=== PATIENT | male | born 1965 | race Caucasian/White ===

== ENCOUNTER 2019-08-09 20:18 | Observation (INO) | payer OTHER ==
--- NOTE | 2019-08-09 20:30 | ER Document Report ---
ED Medical Screen (RME) - General Stated Complaint: SIGNS OF STROKE Time Seen by Provider: 08/09/19 20:24 Mode of Arrival: Ambulatory Information source: Patient Notes: Patient presents complaining of right-sided facial numbness, right arm and right leg numbness. Patient states symptoms started around 630 this evening and have since resolved. Patient states he had a similar episode 2 days ago. Patient denies any chest pain headache nausea or vomiting. Patient denies any significant medical history, although does not go to a doctor regularly. I have greeted and performed a rapid initial assessment of this patient. A comprehensive ED assessment and evaluation of the patient, analysis of test results and completion of the medical decision making process will be conducted by additional ED providers. Physical Exam - Vital signs Vitals: Temp Pulse Resp BP Pulse Ox 98.9 F 82 16 156/88 H 98 08/09/19 20:22 08/09/19 20:22 08/09/19 20:22 08/09/19 20:22 08/09/19 20:22 - Neurological Orientation: AAOx4 Darya Coma Scale Eye Opening: Spontaneous [place] Coma Scale Verbal: Oriented [place] Coma Scale Motor: Obeys Commands Darya Coma Scale Total: 15 Speech: Normal. No: Dysarthria Cranial nerves: Normal. 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
--- NOTE | 2019-08-09 21:02 | RADIOLOGY REPORT (SQ) ---
EXAM DESCRIPTION: XR CHEST 1 VIEW COMPLETED DATE/TME: 08/09/2019 20:29 CLINICAL HISTORY: 54 years, Male, r face/arm/leg numbness COMPARISON: None. NUMBER OF VIEWS: One TECHNIQUE: Single frontal view of the chest was obtained LIMITATIONS: None. FINDINGS: Cardiac and mediastinal contours are normal in appearance. Lungs are clear. No pleural effusion or pneumothorax. IMPRESSION: No acute disease. copyright 2010 [employer]- All Rights Reserved
--- NOTE | 2019-08-09 21:08 | RADIOLOGY REPORT (SQ) ---
EXAM DESCRIPTION: CT HEAD WITHOUT IV CONTRAST COMPLETED DATE/TME: 08/09/2019 20:29 CLINICAL HISTORY: 54 years, Male, r face/arm/leg numbness COMPARISON: None. TECHNIQUE: Noncontrast CT of the head was performed. Coronal and sagittal reformations were created. Images stored on PACS. All CT scanners at this facility use dose modulation, iterative reconstruction, and/or weight based dosing when appropriate to reduce radiation dose to as low as reasonably achievable (ALARA). [facility]: Dose Right [facility]: CareDose [facility]: Dose Right [facility]: Teradose 4D [facility]: [employer] LIMITATIONS: None. FINDINGS: Brain parenchyma is normal in attenuation. No acute intracranial hemorrhage, mass effect, or extra-axial fluid is seen. The ventricles, sulci, and basilar cisterns are normal in size and configuration. Globes and orbits are normal. Paranasal sinuses and mastoid air cells are clear. There are no depressed skull fractures. IMPRESSION: No acute intracranial abnormality. TECHNICAL DOCUMENTATION: Quality ID # 436: Final reports with documentation of one or more dose reduction techniques (e.g., Automated exposure control, adjustment of the mA and/or kV according to patient size, use of iterative reconstruction technique) copyright 2010 [employer]- All Rights Reserved
[2019-08-09 21:26] LABS: ABSOLUTE EOSINOPHILS # (AUTO) 0.2 10^3/uL (0.0-0.6); ABSOLUTE LYMPHOCYTES (AUTO) 1.2 10^3/uL (0.5-4.7); ABSOLUTE MONOCYTES (AUTO) 0.5 10^3/uL (0.1-1.4); ABSOLUTE NEUT (AUTO) 3.8 10^3/uL (1.7-8.2); BASOPHILS % (AUTO) 0.6 % (0-2); EOSINOPHILS % (AUTO) 3.5 % (0-6); HEMATOCRIT 46.7 % (37.9-51.0); HEMOGLOBIN 16.2 g/dL (13.5-17.0); LYMPHOCYTES % (AUTO) 20.5 % (13-45); MEAN CORPUSCULAR HEMOGLOBIN 33.2 pg (27.0-33.4); MEAN CORPUSCULAR HGB CONC 34.8 g/dL (32.0-36.0); MEAN CORPUSCULAR VOLUME 96 fl (80-97); MONOCYTES % (AUTO) 8.9 % (3-13); PLATELET COUNT 217 10^3/uL (150-450); RED BLOOD COUNT 4.89 10^6/uL (4.35-5.55); RED CELL DISTRIBUTION WIDTH 13.2 % (11.5-14.0); SEGMENTED NEUTROPHILS % (AUTO) 66.5 % (42-78); TOTAL CELLS COUNTED % (AUTO) 100 %; WHITE BLOOD COUNT 5.7 10^3/uL (4.0-10.5)
[2019-08-09 21:32] LABS: INTERNATIONAL RATION (INR) 1.01; PROTHROMBIN TIME 13.3 SEC (11.4-15.4)
[2019-08-09 21:33] LABS: PARTIAL THROMBOPLASTIN TIME 34.1 SEC (23.5-35.8)
--- NOTE | 2019-08-09 21:35 | ER Document Report ---
ED [employer]te[employer]/Exc Criteria - Date/Time patient last known well: Date/Time: 08/09/2019 at 1830 hrs. - Date/Time patient arrived in ED: _: 08/09/2019 2024 hrs. - Inclusion Criteria: 1: Patient presented to ED within 3 hours of acute ischemic stroke symptom onset? -: Yes 2: Did baseline CT exclude intracranial hemorrhage and/or other risk factors? -: Yes 3: Is the age of the patient 18 years of age or greater? -: Yes : If any of the above questions are answered "NO" then stop, patient is not a candidate for Alteplase, : If all of the above questions are answered "YES" then continue with Exclusion Criteria. - Exclusion Criteria: 1: Is there evidence of intracranial hemorrhage on baseline CT? -: No 2: Is there suspicion of subarachnoid hemorrhage (even if CT negative)? -: No 3: Is there a history of serious head trauma, recent previous stroke or LA within 3 months? -: No 4: Does the patient have a clinical presentation consistent with LA or post-LA pericarditis? -: No 5: Is there history of intracranial hemorrhage? -: No 6: On repeated measurement is Systolic BP greater than 185mmHg or Diastolic BP greater that 110 mmHg and is aggressive treatment needed to reduce blood pressure to these limits (e.g. constant infusion of an anti-hypertensive)? -: No 7: Did the patient awake with stroke symptoms? -: No 8: Has the patient had a lumbar puncture or an arterial puncture at a non- compressile site within 7 days? -: No 9: With in the last 14 days did the patient have surgery or major trauma? -: No 10: Is the patient or less than 2 weeks? -: No 11: Was there any active bleeding or acute trauma? -: No 12: Does the patient have intracranial neoplasm, arteriovenous malformation or aneurysm? -: No 13: Does the patient have abnormal glucose (less than 50 or greater than 400mg/dl)? Record glucose in Comment. -: No 14: Patient has rapidly improving symptoms at the time Alteplase is to be Administered. -: Yes - Patient symptoms have been transient and at time of arrival are resolved 15: Does the patient have any risks for bleeding, including but not limited to: a.: Current use of Coumadin with PT greater than 15 seconds or INR greater than 1.7. b.: Current use of Pradaxa (Dabigatran). c.: Heparin administereed within the past 48 hours and PTT elevated. d.: Platelet count less than 100,000/mm. e.: Major surgery or serious trauma within 14 days. f.: Gastrointestinal or gynecological urinary bleeding within 14 days. g.: Myocardial Infarction (LA) within 3 months. -: No : If the answer to any of the above questions is "YES" then stop, the patient is not a candidate for Alteplase. : If the answer to all of the above questions is "NO" then the patient may be eligible for the Administration of Alteplase. : If the patient is noted to have seizure activity at onset of Stroke symptoms; Consult Neurologist for further evaluation. - The patient is: -: Included and is eligible to receive Alteplase. *Initiate bed placement at higher level of care* --: No Reviewed risks & benefits of thrombolytic therapy: I have reviewed the risks and benefits of thrombolytic therapy with the patient and/or his/her family. No -: Excluded and not eligible to receive Alteplase for the above exclusions. --: Yes -: Excluded and not eligible to receive Alteplase for other reasons (specify in comments): --: No - Diagnosis of TIA: -: Patient presented with transient symptoms that are now resolved and no other neurologic findings are currently present. List symptoms in comments. -: Yes - Transient right sided numbness involving face, RUE and RLE -: Patient is NOT a candidate for tPA. -: Yes -: ____(put name in comment) has been consulted for admission and con tinued evaluation of risk factor assessment.
--- NOTE | 2019-08-09 21:35 | ER Document Report ---
ED General - General Chief Complaint: Numbness of Arm Stated Complaint: SIGNS OF STROKE Time Seen by Provider: 08/09/19 20:24 Mode of Arrival: Ambulatory TRAVEL OUTSIDE OF THE [place] IN LAST 30 DAYS: No - HPI Notes: Patient is a 54-year-old male, he denies prior history of medical problems. Patient is presenting with chief complaint of transient episodes of right facial, right upper extremity, and right lower extremity paresthesias. Patient denies episodes of motor weakness with the paresthesias. Patient denies headache, fever, neck pain, photophobia, chest pain, dyspnea, abdominal pain, visual changes. Patient states he started experiencing the symptoms approximately 3 days prior to arrival in the emergency department after episodes of heavy exertion. Again patient denies chest pain with these episodes. Patient does smoke 1 pack of cigarettes a day. Patient is sitting upright in bed with his at the bedside and is in no acute distress. Patient appears grossly neurologically intact. Patient has no difficulty with speech, movement of extremities, or evidence of dystaxia. Patient does not have a regular doctor at this time. 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 Past Medical History - General Information source: Patient - Social History Smoking Status: Current Every Day Smoker Cigarette use (# per day): Yes - Patient smokes 1 pack cigarettes a day Frequency of alcohol use: Occasional Drug Abuse: None Lives with: Spouse/Significant other Family History: Other - Patient does not report any significant or relevant family medical history Patient has suicidal ideation: No Patient has homicidal ideation: No Pulmonary Medical History: Reports: None EENT Medical History: Reports: None Neurological Medical History: Reports: None Endocrine Medical History: Reports: None Renal/ Medical History: Reports: None Malignancy Medical History: Reports None GI Medical History: Reports: None Musculoskeletal Medical History: Reports None Skin Medical History: Reports None Psychiatric Medical History: Reports: None Traumatic Medical History: Reports: None Infectious Medical History: Reports: None Physical Exam - Vital signs Vitals: Temp Pulse Resp BP Pulse Ox 98.9 F 82 16 156/88 H 98 08/09/19 20:22 08/09/19 20:22 08/09/19 20:22 08/09/19 20:22 08/09/19 20:22 - General General appearance: Appears well, Alert In distress: None - HEENT Head: Normocephalic, Atraumatic Eyes: Normal Conjunctiva: Normal Extraocular movements intact: Yes Eyelashes: Normal Pupils: PERRL Nerve palsy: No Visual purvis normal: Yes Ears: Normal Nasal: Normal Mouth/Lips: Normal Mucous membranes: Normal Pharynx: Normal Neck: Normal. No: Anterior cervical chain, Carotid bruit, Neck mass, Shotty nodes, Thyroid nodule, Thyromegally - Respiratory Respiratory status: No respiratory distress Chest status: Nontender Breath sounds: Normal Chest palpation: Normal - Cardiovascular Rhythm: Regular Heart sounds: Normal auscultation Murmur: No - Abdominal Inspection: Normal Distension: No distension Bowel sounds: Normal Tenderness: Nontender Organomegaly: No organomegaly - Back Back: Normal, Nontender - Extremities General upper extremity: Normal inspection, Nontender, Normal color, Normal ROM, Normal temperature General lower extremity: Normal inspection, Nontender, Normal color, Normal ROM, Normal temperature, Normal weight bearing. No: Keegan's sign Shoulder: Normal Arm: Normal Elbow: Normal Forearm: Normal Wrist: Normal Hand: Normal Hip: Normal Thigh: Normal Knee: Normal Calf: Normal - Neurological Neuro grossly intact: Yes Cognition: Normal Orientation: AAOx4 [place] Coma Scale Eye Opening: Spontaneous [place] Coma Scale Verbal: Oriented Darya Coma Scale Motor: Obeys Commands [place] Coma Scale Total: 15 Speech: Normal Cranial nerves: Normal. No: Facial palsy, Forehead sparing, Gaze palsy, Sensory deficit, Tongue deviation Cerebellar coordination: Normal Motor strength normal: LUE, RUE, LLE, RLE Additional motor exam normals: Equal treasurer Sensory: Normal Knee - Reflex grade: 2 = Normal Notes: Patient has no evidence of hemineglect, no pronator drift in upper or lower extremities. Patient has normal speech. - Psychological Associated symptoms: Normal affect, Normal mood - Skin Skin Temperature: Warm Skin Moisture: Dry Skin Color: Normal Course - Re-evaluation Re-evalutation: 08/09/19 23:08 Patient remains without evidence of focal neurologic deficit Differential diagnosis: TIA, ischemic CVA, intracranial hemorrhage, thoracic outlet syndrome, carotid stenosis, ACS Medical decision making: Patient's evaluation and findings in terms of objective data and physical exam are most consistent with TIA symptoms. This MD discussed with patient and patient's work-up, evaluation, physical exam findings, imaging and laboratory findings, EKG findings and expressed concern to patient and patient's about the possibility of TIA. This MD recommended that the patient be admitted for stroke risk stratification. Patient and patient's agreed to this. All questions were answered. Patient was given 81 milligrams of aspirin in the ED, 14 mg nicotine transdermal patch and heart healthy diet ordered. Case was discussed with Dr. Kj Lares at 2237 hrs. He agreed to admit the patient. He requested that an MRI (noncontrast) of the brain be ordered. Final diagnosis: Transient paresthesias of right face, right upper extremity, right lower extremity Plan: Admission and further evaluation on inpatient basis as described above. - Vital Signs Vital signs: Temp Pulse Resp BP Pulse Ox 98.9 F 71 16 152/96 H 96 08/09/19 20:22 08/09/19 21:36 08/09/19 21:36 08/09/19 21:36 08/09/19 21:36 - Laboratory Result Diagrams: 08/09/19 21:17 08/09/19 21:17 Laboratory results interpreted by me: 08/09/19 21:17 Sodium 136.8 L All laboratory findings reviewed by this MD. - Diagnostic Test Radiology reviewed: Reports reviewed - EKG Interpretation by Me Additional EKG results interpreted by me: 08/09/19 23:15 EKG done at 2106 hrs. on 08/09/2019 was interpreted by this MD. Findings: Normal sinus rhythm, rate of 70, normal axis, no ST elevation or depression noted. Impression: Normal sinus rhythm with no obvious evidence of myocardial injury pattern. - Transfer of Care Care transferred to following provider: Case discussed with Dr. Kj Lares at 2237 hrs. Discharge - Discharge Clinical Impression: Arm paresthesia, right, Facial paresthesia, Right leg paresthesias Condition: Good Disposition: ADMITTED INPATIENT Admitting Provider: Arnaud (Hospitalist) Unit Admitted: [facility]
[2019-08-09 21:40] LABS: ALBUMIN 4.5 g/dL (3.5-5.0); ALKALINE PHOSPHATASE 56 U/L (38-126); ANION GAP 11 (5-19); ASPARTATE AMINO TRANSFERASE 28 U/L (17-59); BILIRUBIN,DIRECT 0.1 mg/dL (0.0-0.4); BILIRUBIN,TOTAL 0.6 mg/dL (0.2-1.3); BLOOD UREA NITROGEN 10 mg/dL (7-20); CALCIUM 9.8 mg/dL (8.4-10.2); CARBON DIOXIDE 26 mmol/L (22-30); CHLORIDE 100 mmol/L (98-107); CREATINE KINASE 70 U/L (55-170); GLUCOSE 86 mg/dL (75-110); POTASSIUM 3.9 mmol/L (3.6-5.0); TOTAL PROTEIN 7.4 g/dL (6.3-8.2)
[2019-08-09 21:53] LABS: CREATINE KINASE MB 0.73 ng/mL (<4.55); TROPONIN I < 0.012 ng/mL
[2019-08-09] MEDS ORDERED: ATORVASTATIN CALCIUM 80 MG TABLET PO SCH (22:00)
[2019-08-09] MEDS ORDERED: ASPIRIN 81 MG TABLET, CHEWABLE PO ONE (22:36)
[2019-08-09] MEDS ORDERED: NICOTINE 14 MG/24 HR PATCH.TD24 TD ONE (22:36)
[2019-08-09] MEDS ORDERED: ACETAMINOPHEN 325 MG TABLET PO PRN (22:37)
[2019-08-10] MEDS ORDERED: TEMAZEPAM 15 MG CAPSULE PO PRN (01:42)
--- NOTE | 2019-08-10 04:55 | PDOC H&P ---
History of Present Illness Admission Date/PCP: 08/09/19 23:12 Patient complains of: Left facial and left-sided numbness and tingling History of Present Illness: SNEHAL MAX is a 54 year old male with a past medical history of tobacco dependence. He presents 3 days after the onset of left facial left upper extremity and tongue paresthesia described as tingling. Symptoms have not progressed and have been intermittent following the use of heavy machinery. He denies palpitations, headache, difficulty with speech, blurred vision or focal motor symptoms. He is unable to identify alleviating or exacerbating factors. He denies previous episode, new medications and is otherwise felt well. In the emergency room he has an unremarkable work-up he is referred to the hospitalist for TIA. Past Medical History Pulmonary Medical History: Reports: None EENT Medical History: Reports: None Neurological Medical History: Reports: None Endocrine Medical History: Reports: None Renal/ Medical History: Reports: None Malignancy Medical History: Reports: None GI Medical History: Reports: None Musculoskeltal Medical History: Reports: None Skin Medical History: Reports: None Psychiatric Medical History: Reports: Tobacco Dependency Traumatic Medical History: Reports: None Infectious Medical History: Reports: None Social History Lives with: Spouse/Significant other Smoking Status: Current Every Day Smoker Cigarettes Packs Per Day: 1 Number of Years Smokin Last Time Smoked: t-1 Frequency of Alcohol Use: Heavy Amount of Alcoholic Beverages Per Day: 5 beers daily Last Alcohol Use: 08/09/19 Hx Recreational Drug Use: Yes Drugs: None Hx Prescription Drug Abuse: No - Advance Directive Resuscitation Status: Full Code Family History Family History: Other - Patient does not report any significant or relevant family medical history Parental Family History Reviewed: Yes Children Family History Reviewed: Yes Sibling(s) Family History Reviewed.: Yes Medication/Allergy Home Medications: Aspirin [Ecotrin 81 mg EC Tablet] 2 cap PO QHS 08/10/19 Allergies/Adverse Reactions: bee venom protein (honey bee) Adverse Reaction (Verified 08/10/19 01:31) fire ant Adverse Reaction (Verified 08/10/19 01:31) Review of Systems Constitutional: ABSENT: chills, fever(s), headache(s), weight gain, weight loss Eyes: ABSENT: visual disturbances Ears: ABSENT: hearing changes Cardiovascular: ABSENT: chest pain, dyspnea on exertion, edema, orthropnea, palpitations Respiratory: ABSENT: cough, hemoptysis Gastrointestinal: ABSENT: abdominal pain, constipation, diarrhea, hematemesis, hematochezia, nausea, vomiting Genitourinary: ABSENT: dysuria, hematuria Musculoskeletal: ABSENT: joint swelling Integumentary: ABSENT: rash, wounds Neurological: ABSENT: abnormal gait, abnormal speech, confusion, dizziness, focal weakness, syncope Psychiatric: ABSENT: anxiety, depression, homidical ideation, suicidal ideation Endocrine: ABSENT: cold intolerance, heat intolerance, polydipsia, polyuria Hematologic/Lymphatic: ABSENT: easy bleeding, easy bruising Physical Exam Vital Signs: Temp Pulse Resp BP Pulse Ox 98.7 F 62 21 H 126/74 H 95 08/10/19 04:00 08/10/19 04:00 08/10/19 04:00 08/10/19 04:00 08/10/19 04:00 Intake & Output 08/08/19 08/09/19 08/10/19 11:59 11:59 11:59 Weight 77.4 kg General appearance: PRESENT: no acute distress, well-developed, well-nourished Head exam: PRESENT: atraumatic, normocephalic Eye exam: PRESENT: conjunctiva pink, EOMI, PERRLA. ABSENT: scleral icterus Ear exam: PRESENT: normal external ear exam Mouth exam: PRESENT: moist, tongue midline Neck exam: ABSENT: carotid bruit, JVD, lymphadenopathy, thyromegaly Respiratory exam: PRESENT: clear to auscultation corie. ABSENT: rales, rhonchi, wheezes Cardiovascular exam: PRESENT: RRR. ABSENT: diastolic murmur, rubs, systolic murmur Pulses: PRESENT: normal dorsalis pedis pul Vascular exam: PRESENT: normal capillary refill GI/Abdominal exam: PRESENT: normal bowel sounds, soft. ABSENT: distended, guarding, mass, organolmegaly, rebound, tenderness Rectal exam: PRESENT: deferred Extremities exam: PRESENT: full ROM. ABSENT: calf tenderness, clubbing, pedal edema Neurological exam: PRESENT: alert, awake, oriented to person, oriented to place, oriented to time, oriented to situation, CN II-XII grossly intact. ABSENT: motor sensory deficit Psychiatric exam: PRESENT: appropriate affect, normal mood. ABSENT: homicidal ideation, suicidal ideation Skin exam: PRESENT: dry, intact, warm. ABSENT: cyanosis, rash Results Laboratory Results: 08/09/19 21:17 08/09/19 21:17 08/09/19 08/09/19 08/09/19 21:17 21:17 21:17 WBC 5.7 RBC 4.89 Hgb 16.2 Hct 46.7 MCV 96 MCH 33.2 MCHC 34.8 RDW 13.2 Plt Count 217 Seg Neutrophils % 66.5 Sodium 136.8 L Potassium 3.9 Chloride 100 Carbon Dioxide 26 Anion Gap 11 BUN 10 Creatinine 0.74 Est GFR ( Amer) > 60 Glucose 86 Calcium 9.8 Total Bilirubin 0.6 AST 28 Alkaline Phosphatase 56 Total Protein 7.4 Albumin 4.5 TSH 1.51 08/09/19 08/09/19 21:17 21:17 Creatine Kinase 70 CK-MB (CK-2) 0.73 Troponin I < 0.012 Impressions: Chest X-Ray 08/09/19 20:29 IMPRESSION: No acute disease. copyright 2011 [employer]- All Rights Reserved Head CT 08/09/19 20:29 IMPRESSION: No acute intracranial abnormality. TECHNICAL DOCUMENTATION: Quality ID # 436: Final reports with documentation of one or more dose reduction techniques (e.g., Automated exposure control, adjustment of the mA and/or kV according to patient size, use of iterative reconstruction technique) copyright 2011 [employer]- All Rights Reserved Assessment and Plan - Diagnosis (1) TIA (transient ischemic attack) Is this a current diagnosis for this admission?: Yes Plan: Atypical likely peripheral paresthesia following use of heavy machinery. Risk factors present, TIA care set deployed, follow-up carotid Doppler and MRI (2) Tobacco abuse Is this a current diagnosis for this admission?: Yes Plan: Tobacco cessation counseling, nicotine replacement options discussed
[2019-08-10 05:06] LABS: CHOLESTEROL 210.43 mg/dL (0-200); TRIGLYCERIDES 124 mg/dL (<150)
[2019-08-10 05:17] LABS: DIRECT LDL 141 mg/dL (<100)
[2019-08-10] MEDS ORDERED: HEPARIN SOD (PORCINE) 5,000 UNIT/ML 1 ML VIAL SUBCUT SCH (06:00)
--- NOTE | 2019-08-10 06:27 | EKG REPORT ---
SEVERITY:- NORMAL ECG - SINUS RHYTHM : Confirmed by: Vadim Cabrera MD 10-Aug-2019 06:26:34
[2019-08-10 08:32] LABS: ABSOLUTE EOSINOPHILS # (AUTO) 0.2 10^3/uL (0.0-0.6); ABSOLUTE LYMPHOCYTES (AUTO) 1.4 10^3/uL (0.5-4.7); ABSOLUTE MONOCYTES (AUTO) 0.6 10^3/uL (0.1-1.4); ABSOLUTE NEUT (AUTO) 4.4 10^3/uL (1.7-8.2); BASOPHILS % (AUTO) 0.4 % (0-2); EOSINOPHILS % (AUTO) 3.3 % (0-6); HEMATOCRIT 47.6 % (37.9-51.0); HEMOGLOBIN 16.5 g/dL (13.5-17.0); LYMPHOCYTES % (AUTO) 20.9 % (13-45); MEAN CORPUSCULAR HEMOGLOBIN 33.1 pg (27.0-33.4); MEAN CORPUSCULAR HGB CONC 34.5 g/dL (32.0-36.0); MEAN CORPUSCULAR VOLUME 96 fl (80-97); MONOCYTES % (AUTO) 8.7 % (3-13); PLATELET COUNT 232 10^3/uL (150-450); RED BLOOD COUNT 4.97 10^6/uL (4.35-5.55); SEGMENTED NEUTROPHILS % (AUTO) 66.7 % (42-78); TOTAL CELLS COUNTED % (AUTO) 100 %; WHITE BLOOD COUNT 6.6 10^3/uL (4.0-10.5)
[2019-08-10 09:00] LABS: ALBUMIN 4.5 g/dL (3.5-5.0); ALKALINE PHOSPHATASE 61 U/L (38-126); ANION GAP 10 (5-19); ASPARTATE AMINO TRANSFERASE 26 U/L (17-59); BILIRUBIN,DIRECT 0.1 mg/dL (0.0-0.4); BILIRUBIN,TOTAL 1.2 mg/dL (0.2-1.3); BLOOD UREA NITROGEN 10 mg/dL (7-20); CALCIUM 9.9 mg/dL (8.4-10.2); CARBON DIOXIDE 26 mmol/L (22-30); CHLORIDE 102 mmol/L (98-107); GLUCOSE 84 mg/dL (75-110); POTASSIUM 4.3 mmol/L (3.6-5.0); TOTAL PROTEIN 7.5 g/dL (6.3-8.2)
[2019-08-10] MEDS ORDERED: ASPIRIN 81 MG TABLET, ENT COATED PO SCH (10:00)
--- NOTE | 2019-08-10 10:42 | RADIOLOGY REPORT (SQ) ---
EXAM DESCRIPTION: MRI HEAD WITHOUT COMPLETED DATE/TIME: 08/10/2019 10:20 am REASON FOR STUDY: right sided tia sxs COMPARISON: None. TECHNIQUE: Multiplanar imaging includes non-contrasted T1, T2, FLAIR, and diffusion with ADC map seq uences. Images stored on PACS. LIMITATIONS: None. FINDINGS: ANATOMY: No anomalies. Normal vascular flow voids. Pituitary fossa normal. CSF SPACES: Normal in size and contour. No hemorrhage. CEREBRUM: Sulci and gyri normal in size and contour. Normal white matter signal on FLAIR imaging. No evidence of hemorrhage, mass, or extraaxial fluid collection. POSTERIOR FOSSA: No signal alteration. No hemorrhage. No edema, masses or mass effect. Internal keith tory canals, cerebello-pontine angles, mastoids normal. DIFFUSION IMAGING: Negative for acute or sub-acute infarction. ORBITS: No masses. Globes normal. PARANASAL SINUSES: No fluid levels. Mucosa normal. OTHER: No other significant finding. IMPRESSION: NORMAL MRI OF THE BRAIN WITHOUT INTRAVENOUS GADOLINIUM CONTRAST. EVIDENCE OF ACUTE STROKE: NO. TECHNICAL DOCUMENTATION: JOB ID: [id number] [employer]- All Rights Reserved Reading location - IP/workstation name: [email or web address]
[2019-08-10 12:14] VITALS: BP 126/74
--- NOTE | 2019-08-10 12:54 | RADIOLOGY REPORT (SQ) ---
EXAM DESCRIPTION: CAROTID DOPPLER COMPLETED DATE/TIME: 08/10/2019 12:10 pm REASON FOR STUDY: tia COMPARISON: None. TECHNIQUE: Grayscale ultrasound, Doppler velocity and spectra, and color Doppler images acquired of the extra-cranial carotid and vertebral arteries. Images stored on PACS. LIMITATIONS: None. FINDINGS: RIGHT CAROTID CCA Velocities: Within normal limits. ICA Velocities Peak systolic 0.64 m/s. End diastolic 0.27 m/s. Proximal ICA/CCA peak systolic ratio 0.8. Spectra normal. No significant plaque. LEFT CAROTID CCA Velocities: Within normal limits. ICA Velocities Peak systolic 0.58 m/s. End diastolic 0.28 m/s. Proximal ICA/CCA peak systolic ratio 0.7. Spectra normal. No significant plaque. VERTEBRAL ARTERIES: Antegrade flow. Normal waveforms. SUBCLAVIAN ARTERIES: Not imaged. OTHER: No other significant finding. IMPRESSION: NO HEMODYNAMICALLY SIGNIFICANT STENOSIS. COMMENT: Quality ID #[id number]: Velocity criteria are extrapolated from the diameter data as defined by t he Society of Radiologists in Ultrasound Consensus Conference. Radiology 2003: 229; 340-346. TECHNICAL DOCUMENTATION: JOB ID: [id number] [employer]- All Rights Reserved Reading location - IP/workstation name: [email or web address]
[2019-08-10] MEDS ORDERED: INFLUENZA QUAD (6MOS+) 2019-20 VAC 0.5 ML SYR IM ONE (13:00)
--- NOTE | 2019-08-10 17:49 | PDOC DISCHARGE SUMMARY ---
Impression - Admit/DC Date/PCP Admission Date/Primary Care Provider: 08/09/19 23:12 Discharge Date: 08/10/19 - Assessment Summary: 54-year-old male with no significant medical problems admitted with TIA symptoms, CT head was negative MRI is negative for acute pathology carotid Doppler was normal. Patient is going home today I gave the prescription for atorvastatin 5 mg p.o. daily and advised him to continue his aspirin. Patient agreed and agreed to follow-up with primary care physician in 3 to 5 days. - Additional Information Resuscitation Status: Full Code Discharge Diet: Cardiac Discharge Activity: Activity As Tolerated Referrals: [facility] [Provider Group] (Mr. Callahan is making his appointment, because he will be a new patient for them.) Prescriptions: Atorvastatin Calcium [Lipitor 80 mg Tablet] 5 mg PO QHS #30 tablet Home Medications: Aspirin [Ecotrin 81 mg EC Tablet] 2 tab PO QHS 08/10/19 Atorvastatin Calcium [Lipitor 80 mg Tablet] 5 mg PO QHS #30 tablet 08/10/19 History of Present Illiness History of Present Illness: SNEHAL CALLAHAN is a 54 year old male 54 year old male with a past medical history of tobacco dependence. He presents 3 days after the onset of left facial left upper extremity and tongue paresthesia described as tingling. Symptoms have not progressed and have been intermittent following the use of heavy machinery. He denies palpitations, headache, difficulty with speech, blurred vision or focal motor symptoms. He is unable to identify alleviating or exacerbating factors. He denies previous episode, new medications and is otherwise felt well. In the emergency room he has an unremarkable work-up he is referred to the hospitalist for TIA. Hospital Course Hospital Course: 54 year old male with a past medical history of tobacco dependence. He presents 3 days after the onset of left facial left upper extremity and tongue paresthesia described as tingling. Symptoms have not progressed and have been intermittent following the use of heavy machinery. He denies palpitations, headache, difficulty with speech, blurred vision or focal motor symptoms. He is unable to identify alleviating or exacerbating factors. He denies previous episode, new medications and is otherwise felt well. In the emergency room he has an unremarkable work-up he is referred to the hospitalist for TIA. 08/10/2019-patient is admitted with TIA no acute events in the last 24 hours. Afebrile. MRI of the head is negative carotid Doppler is negative for hemodynamically hemodynamically significant stenosis. Vital signs are stable. Patient can be safely discharged today in my opinion. (1) TIA (transient ischemic attack) Is this a current diagnosis for this admission?: Yes Plan: Atypical likely peripheral paresthesia following use of heavy machinery. Risk factors present, TIA care set deployed, follow-up carotid Doppler and MRI 08/10/2019-MRI of the brain came back negative for acute pathology and carotid Doppler was negative for stenosis. Patient is going home today on atorvastatin. (2) Tobacco abuse Is this a current diagnosis for this admission?: Yes Plan: Tobacco cessation counseling, nicotine replacement options discussed 08/10/2019-patient is a chronic daily day smoker smoking counseling was provided for more than 20 minutes today. Physical Exam Vital Signs: Temp Pulse Resp BP Pulse Ox 98.2 F 75 16 126/74 H 92 08/10/19 12:13 08/10/19 12:13 08/10/19 12:13 08/10/19 12:13 08/10/19 12:13 Intake & Output 08/09/19 08/10/19 08/11/19 06:59 06:59 06:59 Weight 76 kg General appearance: PRESENT: no acute distress, cooperative, well-developed Head exam: PRESENT: atraumatic Eye exam: PRESENT: PERRLA Mouth exam: PRESENT: moist, tongue midline Neck exam: ABSENT: carotid bruit, JVD, lymphadenopathy, thyromegaly Respiratory exam: PRESENT: clear to auscultation corie. ABSENT: rales, rhonchi, wheezes Cardiovascular exam: PRESENT: RRR. ABSENT: diastolic murmur, rubs, systolic murmur GI/Abdominal exam: PRESENT: normal bowel sounds, soft. ABSENT: distended, guarding, mass, organolmegaly, rebound, tenderness Rectal exam: PRESENT: deferred Extremities exam: PRESENT: full ROM. ABSENT: calf tenderness, clubbing, pedal edema Neurological exam: PRESENT: alert, awake, oriented to person, oriented to place, oriented to time, oriented to situation, CN II-XII grossly intact. ABSENT: motor sensory deficit Psychiatric exam: PRESENT: appropriate affect, normal mood. ABSENT: homicidal ideation, suicidal ideation Skin exam: PRESENT: dry, intact, warm. ABSENT: cyanosis, rash Results Laboratory Results: WBC 6.6 10^3/uL (4.0-10.5) 08/10/19 08:01 RBC 4.97 10^6/uL (4.35-5.55) 08/10/19 08:01 Hgb 16.5 g/dL (13.5-17.0) 08/10/19 08:01 Hct 47.6 % (37.9-51.0) 08/10/19 08:01 MCV 96 fl (80-97) 08/10/19 08:01 MCH 33.1 pg (27.0-33.4) 08/10/19 08:01 MCHC 34.5 g/dL (32.0-36.0) 08/10/19 08:01 RDW 13.0 % (11.5-14.0) 08/10/19 08:01 Plt Count 232 10^3/uL (150-450) 08/10/19 08:01 Lymph % (Auto) 20.9 % (13-45) 08/10/19 08:01 [place] % (Auto) 8.7 % (3-13) 08/10/19 08:01 Eos % (Auto) 3.3 % (0-6) 08/10/19 08:01 Baso % (Auto) 0.4 % (0-2) 08/10/19 08:01 Absolute Neuts (auto) 4.4 10^3/uL (1.7-8.2) 08/10/19 08:01 Absolute Lymphs (auto) 1.4 10^3/uL (0.5-4.7) 08/10/19 08:01 Absolute Monos (auto) 0.6 10^3/uL (0.1-1.4) 08/10/19 08:01 Absolute Eos (auto) 0.2 10^3/uL (0.0-0.6) 08/10/19 08:01 Absolute Basos (auto) 0.0 10^3/uL (0.0-0.2) 08/10/19 08:01 Seg Neutrophils % 66.7 % (42-78) 08/10/19 08:01 ESR 1 mm/hr (0-20) 08/09/19 21:17 PT 13.3 SEC (11.4-15.4) 08/09/19 21:17 INR 1.01 08/09/19 21:17 APTT 34.1 SEC (23.5-35.8) 08/09/19 21:17 Sodium 137.7 mmol/L (137-145) 08/10/19 08:01 Potassium 4.3 mmol/L (3.6-5.0) 08/10/19 08:01 Chloride 102 mmol/L (98-107) 08/10/19 08:01 Carbon Dioxide 26 mmol/L (22-30) 08/10/19 08:01 Anion Gap 10 (5-19) 08/10/19 08:01 BUN 10 mg/dL (7-20) 08/10/19 08:01 Creatinine 0.74 mg/dL (0.52-1.25) 08/10/19 08:01 Est GFR ( Amer) > 60 (>60) 08/10/19 08:01 Est GFR (MDRD) Non-Af > 60 (>60) 08/10/19 08:01 Glucose 84 mg/dL (75-110) 08/10/19 08:01 POC Glucose 92 mg/dL (70-110) 08/09/19 22:26 Calcium 9.9 mg/dL (8.4-10.2) 08/10/19 08:01 Magnesium 2.4 mg/dL (1.6-2.3) H 08/10/19 08:01 Total Bilirubin 1.2 mg/dL (0.2-1.3) 08/10/19 08:01 Direct Bilirubin 0.1 mg/dL (0.0-0.4) 08/10/19 08:01 Neonat Total Bilirubin Not Reportable 08/10/19 08:01 Neonat Direct Bilirubin Not Reportable 08/10/19 08:01 Neonat Indirect Bili Not Reportable 08/10/19 08:01 AST 26 U/L (17-59) 08/10/19 08:01 ALT 23 U/L (<50) 08/10/19 08:01 Alkaline Phosphatase 61 U/L (38-126) 08/10/19 08:01 Creatine Kinase 70 U/L (55-170) 08/09/19 21:17 CK-MB (CK-2) 0.73 ng/mL (<4.55) 08/09/19 21:17 Troponin I < 0.012 ng/mL 08/09/19 21:17 Total Protein 7.5 g/dL (6.3-8.2) 08/10/19 08:01 Albumin 4.5 g/dL (3.5-5.0) 08/10/19 08:01 Triglycerides 124 mg/dL (<150) 08/10/19 04:32 Cholesterol 210.43 mg/dL (0-200) H 08/10/19 04:32 LDL Cholesterol Direct 141 mg/dL (<100) H 08/10/19 04:32 VLDL Cholesterol 25.0 mg/dL (10-31) 08/10/19 04:32 HDL Cholesterol 45 mg/dL (>40) 08/10/19 04:32 TSH 1.51 uIU/mL (0.47-4.68) 08/09/19 21:17 08/09/19 21:17 CK-MB (CK-2) 0.73 Troponin I < 0.012 Impressions: Chest X-Ray 08/09/19 20:29 IMPRESSION: No acute disease. copyright 2010 [employer]- All Rights Reserved Head CT 08/09/19 20:29 IMPRESSION: No acute intracranial abnormality. TECHNICAL DOCUMENTATION: Quality ID # [id number]: Final reports with documentation of one or more dose reduction techniques (e.g., Automated exposure control, adjustment of the mA and/or kV according to patient size, use of iterative reconstruction technique) copyright 2011 [employer]- All Rights Reserved Head MRI 08/09/19 22:37 IMPRESSION: NORMAL MRI OF THE BRAIN WITHOUT INTRAVENOUS GADOLINIUM CONTRAST. EVIDENCE OF ACUTE STROKE: NO. Carotid Doppler Study 08/10/19 00:00 IMPRESSION: NO HEMODYNAMICALLY SIGNIFICANT STENOSIS. Plan Time Spent: Greater than 30 Minutes Stroke Is this a Stroke Patient?: No Acute Heart Failure - Is this a Heart Failure Patient?: No
[2019-08-11] MEDS ORDERED: INFLUENZA QUAD (6MOS+) 2019-20 VAC 0.5 ML SYR IM ONE (08:00)
== END 2019-08-10 12:51 | disposition home or self-care (01) ==
LOC: ER 20:18 → EH 23:12 → INTOOBSV 23:12 → 3W 08-10 00:36
PROVIDERS: ADMIT Internal Medicine; ATTEND Internal Medicine
PROC: HZ31ZZZ Individual Counseling for Substance Abuse Treatment, Behavioral (ICD-10-PCS; principal; 2019-08-10)
PROC: 3E02340 Introduction of Influenza Vaccine into Muscle, Percutaneous Approach (ICD-10-PCS; 2019-08-10)
DX: G45.9 Transient cerebral ischemic attack, unspecified (principal); F17.210 Nicotine dependence, cigarettes, uncomplicated; Z79.82 Long term (current) use of aspirin; Z23 Encounter for immunization
CPT/HCPCS: 93005; 99285; 36415 ×2; 82553; 82962; 82550; 83735; 84443; 85025 ×2; 85652; 85610; 85730; 80053 ×2; 84484; 80061; 93880; 70551; 71045; 70450; 90686; 93010; 99407; G0378 ×3; J3490